=== PATIENT | female | born 1995 | race Hispanic/Latino ===

== ENCOUNTER 2017-04-20 21:11 | Emergency (ER) | payer MEDICAID, OTHER ==
[~2017-04-20 21:11] MED LIST: IBUP-2070 PO; IRON-10 PO
[2017-04-20 21:35] LABS: APPEARANCE,URINE CLOUDY (CLEAR); BILIRUBIN,URINE SMALL (NEGATIVE); COLOR,URINE YELLOW (YELLOW); GLUCOSE, URINE (UA) NEGATIVE (NEGATIVE); KETONES,URINE 5 mg/dL (NEGATIVE); LEUKOCYTE ESTERASE ,URINE SMALL (NEGATIVE); NITRATE,URINE NEGATIVE (NEGATIVE); OCCULT BLOOD,URINE NEGATIVE (NEGATIVE); PROTEIN,URINE 30 (NEGATIVE)
[2017-04-20 21:42] LABS: HCG,QUAL RESULT NEGATIVE (NEGATIVE)
[2017-04-20 21:58] LABS: BACTERIA,URINE Few /HPF (None Seen)
[2017-04-20 21:59] LABS: MUCUS,URINE Moderate LPF (None Seen); SQUAMOUS EPITHELIAL CELL,UR Few /LPF (0-2)
== END 2017-04-20 22:46 | disposition home or self-care (01) ==
LOC: EDH 21:11
DX: N39.0 Urinary tract infection, site not specified (principal)
CPT/HCPCS: 81001; 81025; 87804

== ENCOUNTER 2018-07-26 12:44 | Emergency (ER) | payer MEDICAID ==
[2018-07-26] MEDS ORDERED: ACETAMINOPHEN 325 MG TAB ONE (12:57)
[2018-07-26] MEDS ORDERED: ONDANSETRON ODT 4 MG TAB ONE (12:57)
[2018-07-26 13:29] LABS: APPEARANCE,URINE Clear (CLEAR); BILIRUBIN,URINE Negative (NEGATIVE); COLOR,URINE Dark Yellow (YELLOW); GLUCOSE, URINE (UA) Negative (NEGATIVE); KETONES,URINE Negative (NEGATIVE); LEUKOCYTE ESTERASE ,URINE Trace (NEGATIVE); NITRATE,URINE Negative (NEGATIVE); OCCULT BLOOD,URINE Negative (NEGATIVE); PH,URINE 6.5 (5.0-8.0); PROTEIN,URINE Trace mg/dL (NEGATIVE)
[2018-07-26 13:30] LABS: RAPID GROUP A STREP NEGATIVE (NEGATIVE)
[2018-07-26 13:40] LABS: BACTERIA,URINE Few /HPF (None Seen); MUCUS,URINE Moderate LPF (None Seen); RBC,URINE 0-1 /HPF (0-1); SQUAMOUS EPITHELIAL CELL,UR Few /HPF (0-2)
== END 2018-07-26 13:51 | disposition home or self-care (01) ==
LOC: EDH 12:44
DX: O99.519 Diseases of the respiratory system complicating pregnancy, unspecified trimester (principal); J10.1 Influenza due to other identified influenza virus with other respiratory manifestations; Z3A.00 Weeks of gestation of pregnancy not specified
CPT/HCPCS: 81001; 87804; 87880